=== PATIENT | male | born 1995 | race Two or more races ===

== ENCOUNTER 2017-02-22 20:52 | Emergency (ER) | payer BC, MEDICAID, OTHER ==
[2017-02-22 20:58] VITALS: BP 123/69
[2017-02-22] MEDS ORDERED: IBUPROFEN 800 MG TABLET PO ONE (23:35)
--- NOTE | 2017-02-22 23:41 | ER Document Report ---
HPI - HPI Patient complains to provider of: Left 5th finger injury Pain Level: 2 Context: Patient is a 21-year-old male who comes emergency department for chief complaint of injury to the left fifth finger. He states he was playing soccer when he fell and landed on his finger, he states that his finger was angled out in an awkward position which appeared to be a dislocation, he states that he immediately pressed on it and pulled it back into normal alignment. He states the area became swollen with some bruising. He denies any other injuries. - DERM Skin Color: Normal, Stewart Past Medical History - General Information source: Patient - Social History Smoking Status: Never Smoker Frequency of alcohol use: None Drug Abuse: None Lives with: Family Family History: Reviewed & Not Pertinent Patient has suicidal ideation: No Patient has homicidal ideation: No - Medical History Medical History: Negative Renal/ Medical History: Denies: Hx Peritoneal Dialysis Surgical Hx: Negative - Immunizations Immunizations up to date: Yes Hx Diphtheria, Pertussis, Tetanus Vaccination: Yes Vertical Provider Document - CONSTITUTIONAL General Appearance: WD/WN, No Apparent Distress - INFECTION CONTROL TRAVEL OUTSIDE OF THE [place] IN LAST 30 DAYS: No - HEENT HEENT: Atraumatic, Normal ENT Exam, Normocephalic - NECK Neck: Normal Inspection - RESPIRATORY Respiratory: Breath Sounds Normal, No Respiratory Distress O2 Sat by Pulse Oximetry: 97 - CARDIOVASCULAR Cardiovascular: Regular Rate, Regular Rhythm - GI/ABDOMEN Gastrointestinal: Abdomen Soft, Abdomen Non-Tender - MUSCULOSKELETAL/EXTREMETIES Musculoskeletal/Extremeties: Tender - Left fifth digit with ecchymosis and swelling over the PIP extending towards the DIP, no pain out of proportion, normal capillary refill and sensation, normal range of motion of the fingers, normal hand and wrist exam otherwise Course - Re-evaluation Re-evalutation: Left fifth index finger swelling with some ecchymosis with normal range of motion, normal capillary refill, normal sensation, and exam is unremarkable otherwise, wrist exam is unremarkable otherwise. No severe pain suggesting compartment syndrome, no other abnormality noted. X-ray imaging does not show dislocation or fracture. Suspect patient dislocated and relocated it himself. Patient placed in splint and sam tape for comfort and protection, discussed follow-up, discussed return precautions, patient states understanding and agreement - Vital Signs Vital signs: Temp Pulse Resp BP Pulse Ox 98.0 F 67 16 123/69 97 05/18/17 20:56 02/22/17 20:56 02/22/17 20:56 02/22/17 20:56 02/22/17 20:56 - Diagnostic Test Radiology reviewed: Image reviewed, Reports reviewed Procedures - Immobilization Left fifth digit Pre-Proc Neuro Vasc Exam: Normal Immobilizer type: Finger protection Performed by: RN Post-Proc Neuro Vasc Exam: Normal Discharge - Discharge Clinical Impression: Finger injury, Finger swelling Condition: Stable Disposition: HOME, SELF-CARE Additional Instructions: Examination is consistent with a dislocation and relocation of the finger joint. Where the sam tape and splint for protection and comfort, I also recommend icing the finger 3-4 times a day for the next couple of days, take the naproxen anti-inflammatory as prescribed, follow-up with primary care. Return to emergency department for any concerning worsening symptoms including severe pain, worsening swelling, redness to the area, or any other concerning symptoms. Prescriptions: Naproxen 500 mg PO BID #20 tablet
== END 2017-02-23 00:44 | disposition home or self-care (01) ==
LOC: ER 20:52
DX: S60.052A Contusion of left little finger without damage to nail, initial encounter (principal); W19.XXXA Unspecified fall, initial encounter; Y93.66 Activity, soccer
CPT/HCPCS: 99283